=== PATIENT | male | born 1955 | race Caucasian/White ===

== ENCOUNTER 2017-10-02 07:31 | Inpatient (IN) | payer MEDICARE ==
[~2017-10-02] VITALS: Ht 167.6 cm; Wt 63.2 kg
[2017-10-02 07:51] LABS: BASOPHILS % (AUTO) 0.3 % (0.0-2.0); EOSINOPHILS % (AUTO) 0.9 % (1.0-6.0); HEMATOCRIT 35.2 % (41-53); HEMOGLOBIN 11.4 g/dL (13.5-17.5); LYMPHOCYTES # (AUTO) 0.8 K/uL (1.0-4.8); LYMPHOCYTES % (AUTO) 6.9 % (22.0-44.0); MEAN CORPUSCULAR HEMOGLOBIN 23.6 pg (26.0-34.0); MEAN CORPUSCULAR HGB CONC 32.3 G/dL (31.0-37.0); MEAN CORPUSCULAR VOLUME 73 fL (80-100); MONOCYTES # (AUTO) 0.5 K/uL (0.1-1.0); MONOCYTES % (AUTO) 4.6 % (2.0-9.0); NEUTROPHILS # (AUTO) 9.5 K/uL (1.8-7.7); PLATELET COUNT (AUTO) 178 K/uL (150-450); RED BLOOD CELL COUNT(AUTO) 4.82 MIL/uL (4.50-5.90); RED CELL DISTRIBUTION WIDTH 22.7 % (11.5-14.5)
[2017-10-02 07:52] LABS: NEUTROPHILS % (AUTO) 87.3 % (40.0-70.0)
[2017-10-02 08:01] LABS: INR 1.1 (0.9-1.1); PROTHROMBIN TIME 11.4 SEC (9.4-11.6)
[2017-10-02 08:04] LABS: ANION GAP 13 mmol/L (8-16); CALCIUM, TOTAL 9.1 mg/dL (8.8-10.5); CARBON DIOXIDE 24 mmol/L (22-29); CHLORIDE 108 mmol/L (98-107); CREATININE 1.45 mg/dL (0.60-1.30); GLOMERULAR FILTR. RATE CALC 42 mL/min (>60); GLUCOSE,RANDOM 177 mg/dL (70-110); POTASSIUM 3.2 mmol/L (3.5-5.1); SODIUM SERUM 145 mmol/L (136-145)
[2017-10-02 08:07] LABS: ALANINE AMINOTRANSFERASE 18 U/L (12-78); ALBUMIN 3.6 g/dL (3.4-5.0); ALKALINE PHOSPHATASE 85 U/L (46-116); ASPARTATE AMINOTRANSFERASE 16 U/L (15-37); BILIRUBIN,TOTAL 0.4 mg/dL (0.1-1.0); CREATINE KINASE, TOTAL 67 U/L (39-308); TOTAL PROTEIN, SERUM 7.2 g/dL (6.4-8.2)
[2017-10-02 08:09] LABS: TROPONIN I < 0.02 ng/mL (0.00-0.05)
[2017-10-02 08:16] LABS: UREA NITROGEN, BLOOD 35 mg/dL (7-18)
[2017-10-02 08:31] LABS: AMMONIA < 10 umol/L (11-32)
[2017-10-02 08:32] LABS: ACETAMINOPHEN < 2 mcg/mL (10-30)
[2017-10-02 08:41] LABS: APPEARANCE,URINE CLEAR (CLEAR); GLUCOSE, URINE (UA) NEGATIVE (NEGATIVE); KETONES,URINE TRACE mg/dL (NEGATIVE); LEUKOCYTE ESTERASE ,URINE NEGATIVE (NEGATIVE); NITRATE,URINE NEGATIVE (NEGATIVE); OCCULT BLOOD,URINE NEGATIVE (NEGATIVE); PH,URINE 5.5 (5.0-8.0); PROTEIN,URINE TRACE (NEGATIVE)
[2017-10-02 08:42] LABS: BILIRUBIN,URINE PRELIM. POSITIVE (NEGATIVE)
[2017-10-02 08:44] LABS: AMPHET/METH SCREEN,URINE NEGATIVE (NEGATIVE); BARBITURATE SCREEN, URINE NEGATIVE (NEGATIVE); BENZODIAZEPINES SCREEN,URINE NEGATIVE (NEGATIVE); CANNABINOID SCREEN,URINE NEGATIVE (NEGATIVE); COCAINE SCREEN,URINE NEGATIVE (NEGATIVE); METHADONE SCREEN, URINE NEGATIVE (NEGATIVE); OPIATE SCREEN,URINE NEGATIVE (NEGATIVE); PHENCYCLIDINE SCREEN,URINE NEGATIVE (NEGATIVE)
[2017-10-02] MEDS ORDERED: SODIUM CHLORIDE 0.9% 1,000 ML IV ONE ×3 (08:45→11:45)
[2017-10-02 08:49] LABS: RBC,URINE 0-2 /HPF (0-2)
[2017-10-02 08:50] LABS: WBC,URINE 0-2 /HPF (0-5)
[2017-10-02 08:51] LABS: BACTERIA,URINE Rare /HPF (None Seen); SQUAMOUS EPITHELIAL CELL,UR None Seen /LPF (None Seen)
[2017-10-02 08:52] LABS: CALCIUM OXALATE CRYSTALS,UR Moderate /LPF (None Seen)
[2017-10-02 09:05] LABS: SALICYLATE < 2.8 mg/dL (2.8-20.0)
[2017-10-02] MEDS ORDERED: ONDANSETRON HCL 4 MG/2 ML VIAL IVP PRN (09:30)
[2017-10-02] MEDS ORDERED: SODIUM CHLORIDE 0.9% 500 ML IV ONE (11:45)
[2017-10-02] MEDS ORDERED: MAGNESIUM HYDROXIDE SUSPENSION 30 ML UDCUP PO PRN (11:45)
[2017-10-02] MEDS ORDERED: POTASSIUM CHLORIDE 20 MEQ ER TABLET PO PRN (11:45)
[2017-10-02] MEDS ORDERED: ALBUTEROL SULFATE 2.5 MG/0.5 ML NEB SOLUTION NEB PRN (11:45)
[2017-10-02 13:20] VITALS: BP 118/56
[2017-10-02 15:39] VITALS: BP 101/56
[2017-10-02] MEDS: POTASSIUM CHL 10 MEQ/WATER 50 ML IV PRN (15:42)
[2017-10-02] MEDS: HEPARIN SODIUM,PORCINE 5,000 UNITS/ML VIAL SQ SCH (16:00)
[2017-10-02 20:22] VITALS: BP 93/58
[2017-10-02] MEDS: DOCUSATE SODIUM 100 MG CAPSULE PO SCH (20:35)
[2017-10-02] MEDS: ACETAMINOPHEN 325 MG TABLET PO PRN (20:35)
[2017-10-03] VITALS (7 sets, daily range): BP systolic 89–107; BP diastolic 54–62
[2017-10-03] MEDS: PANTOPRAZOLE SODIUM 40 MG DR TABLET PO SCH (08:18)
[2017-10-03] MEDS: DOCUSATE SODIUM 100 MG CAPSULE PO SCH ×2 (08:18→20:30)
[2017-10-03] MEDS: HEPARIN SODIUM,PORCINE 5,000 UNITS/ML VIAL SQ SCH ×4 (08:18→23:23)
[2017-10-03] MEDS ORDERED: SODIUM CHLORIDE 0.9% 250 ML IV ONE (20:19)
[2017-10-03] MEDS: POTASSIUM CHL 10 MEQ/WATER 50 ML IV PRN ×3 (20:21→22:14)
[2017-10-03] MEDS: ACETAMINOPHEN 325 MG TABLET PO PRN (20:22)
[2017-10-04 04:55] VITALS: BP 104/59
[2017-10-04 06:44] LABS: ANION GAP 7 mmol/L (8-16); CALCIUM, TOTAL 8.3 mg/dL (8.8-10.5); CARBON DIOXIDE 26 mmol/L (22-29); CHLORIDE 106 mmol/L (98-107); CREATININE 0.93 mg/dL (0.60-1.30); GLOMERULAR FILTR. RATE CALC > 60 mL/min (>60); GLUCOSE,RANDOM 90 mg/dL (70-110); POTASSIUM 3.5 mmol/L (3.5-5.1); SODIUM SERUM 139 mmol/L (136-145); UREA NITROGEN, BLOOD 18 mg/dL (7-18)
[2017-10-04] MEDS: HEPARIN SODIUM,PORCINE 5,000 UNITS/ML VIAL SQ SCH ×3 (07:36→23:24)
[2017-10-04] MEDS: PANTOPRAZOLE SODIUM 40 MG DR TABLET PO SCH (07:36)
[2017-10-04] MEDS: DOCUSATE SODIUM 100 MG CAPSULE PO SCH ×2 (07:36→20:41)
[2017-10-04] MEDS: POTASSIUM CHL 10 MEQ/WATER 50 ML IV PRN ×3 (07:37→17:18)
[2017-10-04 07:40] VITALS: BP 101/46
[2017-10-04] MEDS: ACETAMINOPHEN 325 MG TABLET PO PRN (07:50)
[2017-10-04] MEDS ORDERED: MAGNESIUM SULFATE 6 GM in DEXTROSE 5%-WATER 150 ML IV ONE (09:00)
[2017-10-04 11:46] VITALS: BP 97/60
[2017-10-04 16:34] VITALS: BP 92/54
[2017-10-04 19:46] VITALS: BP 102/55
[2017-10-04 23:36] VITALS: BP 101/59
[2017-10-05 04:35] VITALS: BP 104/61
[2017-10-05 07:29] LABS: ALANINE AMINOTRANSFERASE 12 U/L (12-78); ALBUMIN 2.5 g/dL (3.4-5.0); ALKALINE PHOSPHATASE 64 U/L (46-116); ANION GAP 7 mmol/L (8-16); ASPARTATE AMINOTRANSFERASE 13 U/L (15-37); BILIRUBIN,TOTAL 0.2 mg/dL (0.1-1.0); CALCIUM, TOTAL 8.3 mg/dL (8.8-10.5); CARBON DIOXIDE 26 mmol/L (22-29); CHLORIDE 104 mmol/L (98-107); GLOMERULAR FILTR. RATE CALC > 60 mL/min (>60); GLUCOSE,RANDOM 87 mg/dL (70-110); POTASSIUM 3.5 mmol/L (3.5-5.1); SODIUM SERUM 137 mmol/L (136-145); TOTAL PROTEIN, SERUM 5.8 g/dL (6.4-8.2); UREA NITROGEN, BLOOD 15 mg/dL (7-18)
[2017-10-05 07:52] VITALS: BP 104/60
[2017-10-05] MEDS ORDERED: SODIUM CHLORIDE 0.9% 250 ML IV ONE (07:59)
[2017-10-05] MEDS: HEPARIN SODIUM,PORCINE 5,000 UNITS/ML VIAL SQ SCH ×3 (08:03→23:17)
[2017-10-05] MEDS: POTASSIUM CHL 10 MEQ/WATER 50 ML IV PRN ×3 (08:03→11:08)
[2017-10-05] MEDS: DOCUSATE SODIUM 100 MG CAPSULE PO SCH ×2 (08:04→20:17)
[2017-10-05] MEDS: PANTOPRAZOLE SODIUM 40 MG DR TABLET PO SCH (08:04)
[2017-10-05] MEDS: ACETAMINOPHEN 325 MG TABLET PO PRN (08:27)
[2017-10-05] MEDS ORDERED: MAGNESIUM OXIDE 400 MG TABLET PO ONE (11:00)
[2017-10-05 11:29] VITALS: BP 106/60
[2017-10-05 15:28] VITALS: BP 101/68
[2017-10-05 19:42] VITALS: BP 102/67
[2017-10-05 23:22] VITALS: BP 90/49
[2017-10-06 04:00] VITALS: BP 116/60
[2017-10-06 07:32] VITALS: BP 102/58
[2017-10-06] MEDS: DOCUSATE SODIUM 100 MG CAPSULE PO SCH (07:54)
[2017-10-06] MEDS: PANTOPRAZOLE SODIUM 40 MG DR TABLET PO SCH (07:54)
[2017-10-06] MEDS: HEPARIN SODIUM,PORCINE 5,000 UNITS/ML VIAL SQ SCH ×2 (07:54→16:00)
[2017-10-06 11:15] VITALS: BP 100/51
[2017-10-06 15:38] VITALS: BP 102/64
== END 2017-10-06 19:30 | disposition home or self-care (01) | DRG 314 ==
LOC: EMS 07:34 → EDBD 11:56 → 5N 11:56
PROVIDERS: ADMIT Internal Medicine; ATTEND Internal Medicine
DX: I95.9 Hypotension, unspecified (principal); G93.40 Encephalopathy, unspecified; J44.9 Chronic obstructive pulmonary disease, unspecified; I10 Essential (primary) hypertension; Z71.6 Tobacco abuse counseling; Z79.899 Other long term (current) drug therapy
CPT/HCPCS: 51702; 70450; 83735; 84132; 93005; 93306; 97161; 97530; 99291; G0480; G0481; J1644; J3475; J3480; J7050; J7060